=== PATIENT | male | born 1955 | race Caucasian/White ===

== ENCOUNTER 2017-06-16 11:51 | Emergency (ER) | payer MEDICAID ==
[~2017-06-16] VITALS: Ht 5619.3 cm; Wt 96.2 kg
[~2017-06-16 11:51] MED LIST: FLO0.4C PO; ONDA4TAB6 PO
[2017-06-16 11:55] VITALS: BP 137/65
[2017-06-16] MEDS ORDERED: PENI500T2 PO (12:29)
== END 2017-06-16 12:52 | disposition home or self-care (01) ==
LOC: ER 11:51
DX: K04.7 Periapical abscess without sinus (principal); F17.210 Nicotine dependence, cigarettes, uncomplicated; Z87.442 Personal history of urinary calculi; Z60.2 Problems related to living alone; Z56.0 Unemployment, unspecified; Z79.899 Other long term (current) drug therapy
CPT/HCPCS: 99283

== ENCOUNTER 2023-05-22 11:10 | Inpatient (IN) | payer MEDICAID ==
[~2023-05-22] VITALS: Ht 177.8 cm; Wt 88.0 kg
[~2023-05-22 11:10] MED LIST changes: +CARV-50 PO; +FURO-150 PO; +LISI5TAB22 PO
[2023-05-22] MEDS ORDERED: albuterol 2.5 MG/3 ML nebule NEB ONE (13:50)
[2023-05-22] MEDS ORDERED: normal saline 1000ML IV soln IV ONE (13:50)
[2023-05-22] MEDS ORDERED: piperacillin/tazo 3.375gm/50ml 50 ML IV ONE (13:50)
[2023-05-22] MEDS ORDERED: vancomycin/NS 1 GM ADD-VANTAGE 250 ML IV ONE (13:50)
[2023-05-22] MEDS ORDERED: ondansetron/PF 4mg/2ml inj IV ONE (13:55)
[2023-05-22] MEDS ORDERED: morphine 4 MG/ML inj SYRINge IV ONE (13:55)
[2023-05-22] MEDS ORDERED: gentian violet 59ml topical solution TP ONE (13:55)
[2023-05-22] MEDS ORDERED: methylPREDNISolone sod succ 125mg/2ml vial IV ONE (13:55)
[2023-05-22 14:13] VITALS: PULSE 110; RESP 26; O2SAT 89
[2023-05-22 14:33] VITALS: PULSE 101; RESP 20; O2SAT 96
[2023-05-22 14:41] LABS: BASOPHILS % (AUTO) 0.4 % (0-1); EOSINOPHILS % (AUTO) 0.4 % (0-6); HEMATOCRIT 45.8 % (42.0-52.0); HEMOGLOBIN 14.8 g/dl (14.0-17.9); LYMPHOCYTES # (AUTO) 0.3 X10'3 (1.1-4.8); LYMPHOCYTES % (AUTO) 4.4 % (21-51); MEAN CORPUSCULAR HEMOGLOBIN 29.5 PG (27.0-31.0); MEAN CORPUSCULAR HGB CONC 32.3 g/dL (33.0-36.5); MEAN CORPUSCULAR VOLUME 91.4 FL (78-98); MEAN PLATELET VOLUME 7.4 FL (7.4-10.4); MONOCYTES # (AUTO) 0.3 X10'3 (0-0.9); MONOCYTES % (AUTO) 4.1 % (2-12); NEUTROPHILS # (AUTO) 6.2 X10'3 (1.8-7.7); NEUTROPHILS % (AUTO) 90.7 % (42-75); PLATELET COUNT 198 X10'3 (140-440); RED BLOOD COUNT 5.01 X10'6 (4.70-6.10); RED CELL DISTRIBUTION WIDTH 15.9 % (11.5-14.5); WHITE BLOOD COUNT 6.8 X10'3 (4.5-11.0)
[2023-05-22 15:03] LABS: ALANINE AMINOTRANSFERASE 20 U/L (12-78); ALBUMIN 2.9 G/DL (3.4-5.0); ALBUMIN/GLOBULIN RATIO 0.6 (1.1-1.5); ALKALINE PHOSPHATASE 79 IU/L (46-116); ANION GAP 5 (8-16); ASPARTATE AMINO TRANSFERASE 57 U/L (10-37); BILIRUBIN,TOTAL 1.3 MG/DL (0.1-1.0); BLOOD UREA NITROGEN 25 MG/DL (7-18); BUN/CREATININE RATIO 18.1 (10.0-20.0); CALCIUM 8.7 MG/DL (8.5-10.1); CHLORIDE 106 MMOL/L (99-107); CREATININE 1.38 MG/DL (0.60-1.10); GLUCOSE 90 MG/DL (70-104); POTASSIUM 4.3 MMOL/L (3.5-5.1); SODIUM 142 MMOL/L (135-145); TOTAL CARBON DIOXIDE 31.5 MMOL/L (24-32); TOTAL PROTEIN 7.5 G/DL (6.4-8.2); eCRCL 54 ML/MIN; eGFR 52 ML/MIN
[2023-05-22 15:04] LABS: PLATELET ESTIMATE NORMAL
[2023-05-22 15:05] LABS: ANISOCYTOSIS FEW; GIANT PLATELET FEW; TEAR DROP CELLS 1+
[2023-05-22 15:07] LABS: MAGNESIUM 1.7 MG/DL (1.5-2.4)
[2023-05-22] MEDS ORDERED: furosemide 10 MG/1 ML 10ml inj IV ONE (15:25)
[2023-05-22] MEDS ORDERED: ondansetron/PF 4mg/2ml inj IV PRN (15:35)
[2023-05-22] MEDS ORDERED: potassium Cl 20 mEq SR tablet PO PRN ×2 (15:35)
[2023-05-22] MEDS ORDERED: acetaminophen 325mg tablet PO PRN (15:35)
[2023-05-22] MEDS ORDERED: magnesium 4gm in 100ml NS 100 ML IV PRN (15:35)
[2023-05-22] MEDS ORDERED: HYDROcodone/acetaminophen 5mg/325mg tablet PO PRN (15:35)
[2023-05-22] MEDS ORDERED: magnesium Cl slow-release 64mg tablet PO PRN (15:35)
[2023-05-22] MEDS ORDERED: magnesium 2GM in 50ml NS 50 ML IV PRN (15:35)
[2023-05-22] MEDS ORDERED: morphine 2 MG/ML inj. syringe IV PRN (15:35)
[2023-05-22] MEDS ORDERED: potassium Cl 40MEQ/1/2NS 520ml 520 ML IV PRN (15:35)
[2023-05-22 16:32] LABS: PRO BRAIN NATRIURETIC PEPTIDE > 30000 PG/ML (0-125)
[2023-05-22] MEDS: acetaminophen 325mg tablet PO SCH (16:54)
[2023-05-22] MEDS ORDERED: aspirin 325mg tablet PO ONE (19:25)
[2023-05-22] MEDS: heparin, porcine 5000 units/ml vial SQ SCH (19:49)
[2023-05-22] MEDS: furosemide 40mg/4ml inj IV SCH (19:51)
[2023-05-22 22:25] LABS: BILIRUBIN,URINE NEGATIVE (Neg); CLARITY,URINE CLEAR (Clear); COLOR,URINE STRAW (Yellow); GLUCOSE, URINE NEGATIVE (Neg); KETONES,URINE NEGATIVE (Neg); LEUKOCYTE ESTERASE ,URINE NEGATIVE (Neg); NITRITES, URINE NEGATIVE (Neg); OCCULT BLOOD,URINE TRACE-INTACT (Neg); PH,URINE 5.5 (4.8-8.0); PROTEIN,URINE NEGATIVE (Neg); UROBILINOGEN,URINE 0.2 E.U/dL (0.2-1.0)
[2023-05-22 22:31] LABS: UA COLLECTION TYPE NON-SPECIFIED
[2023-05-22 22:33] LABS: BACTERIA,URINE FEW /HPF (Neg); HYALINE CASTS 0-3 /LPF (NEGATIVE); MUCUS STRANDS NONE SEEN /LPF (Neg); SQUAMOUS EPITHELIAL CELL,UR FEW /LPF (FEW)
[2023-05-22 22:35] LABS: CAL OXALATE CRYSTALS 2+ /HPF (NEGATIVE)
[2023-05-22 22:36] LABS: RBC,URINE 0-2 /HPF (0-2); WBC,URINE 0-4 /HPF (0-4)
[2023-05-22 22:45] LABS: URINE AMPHETAMINE SCREEN NEGATIVE (Neg); URINE BARBITUATE SCREEN NEGATIVE (Neg); URINE BENZODIAZEPINES SCREEN NEGATIVE (Neg); URINE CANNABINOID SCREEN NEGATIVE (Neg); URINE COCAINE SCREEN NEGATIVE (Neg); URINE METHADONE SCREEN NEGATIVE (Neg); URINE OPIATE SCREEN NEGATIVE (Neg); URINE PHENCYCLIDINE SCREEN NEGATIVE (Neg)
[2023-05-22 23:00] VITALS: BP 158/90; PULSE 85; RESP 23; TEMP 97.5; O2SAT 97
[2023-05-22] MEDS ORDERED: NO HOME MEDS (23:29)
[2023-05-23 06:00] VITALS: BP 128/81; PULSE 81; RESP 11; TEMP 96.7; O2SAT 97
[2023-05-23] MEDS: furosemide 40mg/4ml inj IV SCH ×2 (07:59→20:12)
[2023-05-23] MEDS: heparin, porcine 5000 units/ml vial SQ SCH ×2 (07:59→20:13)
[2023-05-23 08:00] VITALS: RESP 16; O2SAT 93
[2023-05-23] MEDS: acetaminophen 325mg tablet PO SCH ×2 (08:00→16:52)
[2023-05-23 15:00] VITALS: BP 133/72; PULSE 91; RESP 16; TEMP 98.5; O2SAT 95
[2023-05-23] MEDS: carVEDilol 3.125mg tablet PO SCH ×2 (17:15→20:13)
[2023-05-23 18:00] VITALS: BP 150/88; PULSE 78; RESP 16; TEMP 97.4; O2SAT 99
[2023-05-23 20:00] VITALS: RESP 16; O2SAT 93
[2023-05-23] MEDS: nystatin 15 GM powder TP SCH (20:13)
[2023-05-23 22:00] VITALS: BP 127/87; PULSE 83; RESP 16; TEMP 97.9; O2SAT 96
[2023-05-24] VITALS (7 sets, daily range): BP systolic 111–160; BP diastolic 55–92; PULSE 79–94; RESP 16–20; TEMP 97.4–98.4; O2SAT 90–95
[2023-05-24 07:48] LABS: EOSINOPHILS % (AUTO) 0.7 % (0-6); HEMOGLOBIN 12.3 g/dl (14.0-17.9); LYMPHOCYTES # (AUTO) 0.6 X10'3 (1.1-4.8); MEAN CORPUSCULAR HEMOGLOBIN 29.3 PG (27.0-31.0); NEUTROPHILS # (AUTO) 5.1 X10'3 (1.8-7.7); WHITE BLOOD COUNT 6.3 X10'3 (4.5-11.0)
[2023-05-24 07:50] LABS: BASOPHILS % (AUTO) 0.4 % (0-1); HEMATOCRIT 38.4 % (42.0-52.0); MEAN CORPUSCULAR HGB CONC 31.9 g/dL (33.0-36.5); MEAN CORPUSCULAR VOLUME 91.6 FL (78-98); MONOCYTES # (AUTO) 0.5 X10'3 (0-0.9); MONOCYTES % (AUTO) 7.9 % (2-12); PLATELET COUNT 162 X10'3 (140-440); RED BLOOD COUNT 4.19 X10'6 (4.70-6.10); RED CELL DISTRIBUTION WIDTH 15.5 % (11.5-14.5)
[2023-05-24] MEDS: lisinopril 5mg tablet PO SCH (08:00)
[2023-05-24] MEDS: heparin, porcine 5000 units/ml vial SQ SCH ×2 (08:00→21:00)
[2023-05-24] MEDS: furosemide 40mg/4ml inj IV SCH ×2 (08:00→20:00)
[2023-05-24] MEDS: nystatin 15 GM powder TP SCH ×2 (08:00→20:00)
[2023-05-24] MEDS: acetaminophen 325mg tablet PO SCH ×3 (08:00→16:00)
[2023-05-24 08:10] LABS: ALANINE AMINOTRANSFERASE 18 U/L (12-78); ALBUMIN 2.6 G/DL (3.4-5.0); ALBUMIN/GLOBULIN RATIO 0.6 (1.1-1.5); ALKALINE PHOSPHATASE 65 IU/L (46-116); ANION GAP 3 (8-16); ASPARTATE AMINO TRANSFERASE 51 U/L (10-37); BILIRUBIN,TOTAL 0.5 MG/DL (0.1-1.0); BLOOD UREA NITROGEN 38 MG/DL (7-18); BUN/CREATININE RATIO 21.6 (10.0-20.0); CALCIUM 8.5 MG/DL (8.5-10.1); CHLORIDE 101 MMOL/L (99-107); CREATININE 1.76 MG/DL (0.60-1.10); GLUCOSE 88 MG/DL (70-104); POTASSIUM 3.6 MMOL/L (3.5-5.1); SODIUM 139 MMOL/L (135-145); TOTAL CARBON DIOXIDE 35.1 MMOL/L (24-32); TOTAL PROTEIN 6.7 G/DL (6.4-8.2); eCRCL 43 ML/MIN; eGFR 39 ML/MIN
[2023-05-24] MEDS: carvedilol 6.25mg tablet PO SCH (20:59)
[2023-05-25 06:00] VITALS: BP 128/71; PULSE 78; RESP 20; TEMP 98.1; O2SAT 91
[2023-05-25 06:30] LABS: BASOPHILS % (AUTO) 0.5 % (0-1); EOSINOPHILS # (AUTO) 0.1 X10'3 (0-0.9); EOSINOPHILS % (AUTO) 1.9 % (0-6); HEMATOCRIT 37.1 % (42.0-52.0); HEMOGLOBIN 12.4 g/dl (14.0-17.9); LYMPHOCYTES # (AUTO) 0.5 X10'3 (1.1-4.8); LYMPHOCYTES % (AUTO) 12.2 % (21-51); MEAN CORPUSCULAR HEMOGLOBIN 31.4 PG (27.0-31.0); MEAN CORPUSCULAR HGB CONC 33.5 g/dL (33.0-36.5); MEAN CORPUSCULAR VOLUME 93.5 FL (78-98); MEAN PLATELET VOLUME 7.9 FL (7.4-10.4); MONOCYTES # (AUTO) 0.3 X10'3 (0-0.9); MONOCYTES % (AUTO) 6.2 % (2-12); NEUTROPHILS # (AUTO) 3.4 X10'3 (1.8-7.7); NEUTROPHILS % (AUTO) 79.2 % (42-75); PLATELET COUNT 162 X10'3 (140-440); RED BLOOD COUNT 3.96 X10'6 (4.70-6.10); RED CELL DISTRIBUTION WIDTH 15.5 % (11.5-14.5); WHITE BLOOD COUNT 4.3 X10'3 (4.5-11.0)
[2023-05-25 06:31] LABS: ALANINE AMINOTRANSFERASE 25 U/L (12-78); ALBUMIN 2.4 G/DL (3.4-5.0); ALBUMIN/GLOBULIN RATIO 0.6 (1.1-1.5); ALKALINE PHOSPHATASE 61 IU/L (46-116); ANION GAP 1 (8-16); ASPARTATE AMINO TRANSFERASE 52 U/L (10-37); BILIRUBIN,TOTAL 0.5 MG/DL (0.1-1.0); BLOOD UREA NITROGEN 41 MG/DL (7-18); BUN/CREATININE RATIO 27.9 (10.0-20.0); CALCIUM 8.1 MG/DL (8.5-10.1); CHLORIDE 100 MMOL/L (99-107); CREATININE 1.47 MG/DL (0.60-1.10); GLUCOSE 90 MG/DL (70-104); POTASSIUM 3.5 MMOL/L (3.5-5.1); SODIUM 139 MMOL/L (135-145); TOTAL CARBON DIOXIDE 38.3 MMOL/L (24-32); TOTAL PROTEIN 6.2 G/DL (6.4-8.2); eCRCL 51 ML/MIN; eGFR 48 ML/MIN
[2023-05-25 08:00] VITALS: RESP 20; O2SAT 90
[2023-05-25] MEDS: acetaminophen 325mg tablet PO SCH ×3 (08:00→16:00)
[2023-05-25] MEDS: furosemide 40mg/4ml inj IV SCH ×2 (08:00→19:57)
[2023-05-25] MEDS: nystatin 15 GM powder TP SCH ×2 (08:00→19:56)
[2023-05-25] MEDS: heparin, porcine 5000 units/ml vial SQ SCH ×2 (08:00→19:55)
[2023-05-25] MEDS: carvedilol 6.25mg tablet PO SCH ×2 (08:00→19:54)
[2023-05-25] MEDS: lisinopril 5mg tablet PO SCH (08:00)
[2023-05-25 11:00] VITALS: BP 139/74; PULSE 82; RESP 20; TEMP 97; O2SAT 90
[2023-05-25 15:42] LABS: CHOL/HDL RATIO 3.6 (0.00-4.99); CHOLESTEROL 122 MG/DL (0-200); HDL CHOLESTEROL 34 MG/DL (35-60); LDL CHOLESTEROL 64 MG/DL (50-100); TRIGLYCERIDES 79 MG/DL (20-135)
[2023-05-25 18:00] VITALS: BP 132/76; PULSE 71; RESP 14; TEMP 97.7; O2SAT 96
[2023-05-25] MEDS: amox tr/potassium clavulanate 875/125mg TAB PO SCH (19:55)
[2023-05-25 20:00] VITALS: RESP 14; O2SAT 96
[2023-05-25] MEDS ORDERED: furosemide 40mg tablet PO ONE (21:15)
[2023-05-25 22:00] VITALS: BP 150/84; PULSE 80; RESP 20; TEMP 97.4; O2SAT 94
[2023-05-26 02:00] VITALS: BP 121/51; PULSE 91; RESP 23; TEMP 97.6; O2SAT 91
[2023-05-26 06:51] LABS: BASOPHILS % (AUTO) 0.4 % (0-1); EOSINOPHILS # (AUTO) 0.1 X10'3 (0-0.9); EOSINOPHILS % (AUTO) 3.2 % (0-6); HEMATOCRIT 40.8 % (42.0-52.0); HEMOGLOBIN 13.1 g/dl (14.0-17.9); LYMPHOCYTES # (AUTO) 0.7 X10'3 (1.1-4.8); LYMPHOCYTES % (AUTO) 15.9 % (21-51); MEAN CORPUSCULAR HEMOGLOBIN 29.2 PG (27.0-31.0); MEAN CORPUSCULAR HGB CONC 32.2 g/dL (33.0-36.5); MEAN CORPUSCULAR VOLUME 90.8 FL (78-98); MONOCYTES # (AUTO) 0.3 X10'3 (0-0.9); MONOCYTES % (AUTO) 7.6 % (2-12); NEUTROPHILS # (AUTO) 3.1 X10'3 (1.8-7.7); NEUTROPHILS % (AUTO) 72.9 % (42-75); PLATELET COUNT 184 X10'3 (140-440); RED BLOOD COUNT 4.49 X10'6 (4.70-6.10); RED CELL DISTRIBUTION WIDTH 15.3 % (11.5-14.5); WHITE BLOOD COUNT 4.2 X10'3 (4.5-11.0)
[2023-05-26 07:00] VITALS: BP 125/80; PULSE 80; RESP 18; TEMP 97.6; O2SAT 94
[2023-05-26 07:05] LABS: ALANINE AMINOTRANSFERASE 24 U/L (12-78); ALBUMIN 2.6 G/DL (3.4-5.0); ALBUMIN/GLOBULIN RATIO 0.7 (1.1-1.5); ALKALINE PHOSPHATASE 63 IU/L (46-116); ANION GAP 3 (8-16); ASPARTATE AMINO TRANSFERASE 53 U/L (10-37); BILIRUBIN,TOTAL 0.6 MG/DL (0.1-1.0); BLOOD UREA NITROGEN 36 MG/DL (7-18); BUN/CREATININE RATIO 27.7 (10.0-20.0); CALCIUM 8.7 MG/DL (8.5-10.1); CHLORIDE 99 MMOL/L (99-107); GLUCOSE 93 MG/DL (70-104); POTASSIUM 4.1 MMOL/L (3.5-5.1); SODIUM 140 MMOL/L (135-145); TOTAL CARBON DIOXIDE 38.2 MMOL/L (24-32); TOTAL PROTEIN 6.6 G/DL (6.4-8.2); eCRCL 58 ML/MIN; eGFR 55 ML/MIN
[2023-05-26] MEDS: nystatin 15 GM powder TP SCH ×2 (08:00→20:19)
[2023-05-26] MEDS: acetaminophen 325mg tablet PO SCH ×3 (08:00→16:56)
[2023-05-26] MEDS: lisinopril 5mg tablet PO SCH (08:00)
[2023-05-26] MEDS: EMPAGLIFLOZIN 10 MG TABLET PO SCH (08:00)
[2023-05-26] MEDS: furosemide 40mg tablet PO SCH ×2 (08:00→20:19)
[2023-05-26] MEDS: carvedilol 6.25mg tablet PO SCH ×2 (08:00→20:19)
[2023-05-26] MEDS: heparin, porcine 5000 units/ml vial SQ SCH ×2 (08:00→20:19)
[2023-05-26] MEDS: atorvastatin 20mg tablet PO SCH (08:00)
[2023-05-26] MEDS: amox tr/potassium clavulanate 875/125mg TAB PO SCH ×2 (08:30→16:54)
[2023-05-26 11:00] VITALS: BP 132/71; PULSE 74; RESP 18; TEMP 97.2; O2SAT 91
[2023-05-26] MEDS ORDERED: amox tr/potassium clavulanate 875/125mg TAB PO ONE (11:10)
[2023-05-26] MEDS ORDERED: furosemide 20MG tablet PO ONE (11:10)
[2023-05-26] MEDS ORDERED: acetaminophen 325mg tablet PO ONE (11:10)
[2023-05-26] MEDS ORDERED: atorvastatin 20mg tablet PO ONE (11:10)
[2023-05-26] MEDS ORDERED: heparin, porcine 5000 units/ml vial SQ ONE (11:20)
[2023-05-26] MEDS ORDERED: EMPAGLIFLOZIN 10 MG TABLET PO ONE (11:20)
[2023-05-26] MEDS ORDERED: carVEDilol 3.125mg tablet PO ONE (11:20)
[2023-05-26] MEDS ORDERED: lisinopril 5mg tablet PO ONE (11:21)
[2023-05-26 15:00] VITALS: BP 121/58; PULSE 64; RESP 16; TEMP 97.8; O2SAT 94
[2023-05-26 18:00] VITALS: BP 138/80; PULSE 81; RESP 18; TEMP 98.3; O2SAT 94
[2023-05-26 22:00] VITALS: BP 129/70; PULSE 88; RESP 18; TEMP 97.8; O2SAT 88
[2023-05-27] MEDS: acetaminophen 325mg tablet PO SCH ×2 (01:57→08:52)
[2023-05-27 02:00] VITALS: BP 127/71; PULSE 73; RESP 18; TEMP 97.4; O2SAT 93
[2023-05-27] MEDS: nystatin 15 GM powder TP SCH (08:00)
[2023-05-27 08:30] VITALS: BP 153/77; PULSE 74; RESP 16; TEMP 97.9; O2SAT 97
[2023-05-27] MEDS: amox tr/potassium clavulanate 875/125mg TAB PO SCH (08:51)
[2023-05-27] MEDS: atorvastatin 20mg tablet PO SCH (08:52)
[2023-05-27] MEDS: furosemide 40mg tablet PO SCH (08:52)
[2023-05-27] MEDS: carvedilol 6.25mg tablet PO SCH (08:52)
[2023-05-27] MEDS: EMPAGLIFLOZIN 10 MG TABLET PO SCH (08:52)
[2023-05-27] MEDS: heparin, porcine 5000 units/ml vial SQ SCH (08:53)
[2023-05-27] MEDS: lisinopril 5mg tablet PO SCH (08:53)
[2023-05-27] MEDS ORDERED: LISI5TAB22 PO (09:38)
[2023-05-27] MEDS ORDERED: CARV6.253 PO (09:38)
[2023-05-27] MEDS ORDERED: FURO40TA4 PO (09:38)
[2023-05-27] MEDS ORDERED: ATOR20TA66 PO (09:38)
[2023-05-27] MEDS ORDERED: NYSPWD TP (09:38)
[2023-05-27] MEDS ORDERED: EMPA10TA PO (09:38)
[2023-05-27] MEDS ORDERED: AMOX-580 PO (09:38)
[2023-05-27 11:00] VITALS: BP 127/76; PULSE 73; RESP 16; TEMP 98.4; O2SAT 98
== END 2023-05-27 15:45 | disposition home or self-care (01) | DRG 194 ==
LOC: ER 11:10 → ED HOLD 15:36 → PCU 3S 23:10
PROVIDERS: ADMIT Internal Medicine; ATTEND Internal Medicine
DX: I13.0 Hypertensive heart and chronic kidney disease with heart failure and stage 1 through stage 4 chronic kidney disease, or unspecified chronic kidney disease (principal); J96.01 Acute respiratory failure with hypoxia; I21.A1 Myocardial infarction type 2; L03.115 Cellulitis of right lower limb; R18.8 Other ascites; L03.116 Cellulitis of left lower limb; I08.1 Rheumatic disorders of both mitral and tricuspid valves; F17.210 Nicotine dependence, cigarettes, uncomplicated; N18.9 Chronic kidney disease, unspecified; I50.23 Acute on chronic systolic (congestive) heart failure; Z20.822 Contact with and (suspected) exposure to COVID-19; N17.9 Acute kidney failure, unspecified; I71.40 Abdominal aortic aneurysm, without rupture, unspecified; L98.9 Disorder of the skin and subcutaneous tissue, unspecified; Z59.02 Unsheltered homelessness; Z87.442 Personal history of urinary calculi; Z79.899 Other long term (current) drug therapy; Z71.6 Tobacco abuse counseling; Z91.148 Patient's other noncompliance with medication regimen for other reason
CPT/HCPCS: 36415; 71045; 80053; 80061; 80305; 81001; 82948; 83036; 83605; 83735; 83880; 84145; 84484; 85008; 85025; 87040; 87081; 87502; 87503; 87811; 93005; 93306; 94640; 94760; 96374; 96375; 97161; 97164; 97530; 99285; A4615; G0378; J1644; J1940; J2543; J2930; J7030